=== PATIENT | female | born 1985 | race Hispanic/Latino ===

== ENCOUNTER 2025-01-13 22:00 | Emergency (ER) | payer BC ==
[~2025-01-13] VITALS: Ht 165.1 cm; Wt 52.2 kg
--- NOTE | 2025-01-13 22:08 | NUR ---
UA CUP PROVIDED
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
[2025-01-14] MEDS ORDERED: IBUP-2070 PO (00:53)
[2025-01-14 01:03] VITALS: BP 118/68; TEMP 98.5; O2SAT 100
--- NOTE | 2025-01-14 01:12 | HMCIMG ---
CHEST 1VW HISTORY: Midsternal pain COMPARISON: None FINDINGS: A frontal projection of the chest was obtained. No acute pulmonary infiltrates is seen. The heart is normal in size. Prominent interstitial markings are seen. No evidence of aortic calcification is seen. IMPRESSION: 1. No acute pulmonary infiltrate is seen.
[2025-01-15 23:16] VITALS: PULSE 84; RESP 18
== END 2025-01-14 01:57 | disposition home or self-care (01) ==
LOC: EDH 22:00
DX: R07.81 Pleurodynia (principal); Z79.1 Long term (current) use of non-steroidal anti-inflammatories (NSAID); Z88.5 Allergy status to narcotic agent; V89.2XXA Person injured in unspecified motor-vehicle accident, traffic, initial encounter; Y93.89 Activity, other specified; Y92.488 Other paved roadways as the place of occurrence of the external cause; Y99.8 Other external cause status
CPT/HCPCS: 71045; 81025; 99284